=== PATIENT | female | born 1970 | race American Indian/Alaskan Native ===

== ENCOUNTER 2017-10-10 13:06 | Emergency (ER) | payer MEDICAID ==
[2017-10-10] MEDS ORDERED: CATAPRES PO ONE (13:21)
[2017-10-10] MEDS ORDERED: TORADOL IV ONE (13:21)
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
[2017-10-10 16:24] VITALS: BP 170/80
== END 2017-10-10 17:00 | disposition home or self-care (01) ==
LOC: ED 13:06
DX: S06.0X1A Concussion with loss of consciousness of 30 minutes or less, initial encounter (principal); S20.229A Contusion of unspecified back wall of thorax, initial encounter; M54.2 Cervicalgia; M54.89 Other dorsalgia; I10 Essential (primary) hypertension; E11.9 Type 2 diabetes mellitus without complications; Z88.8 Allergy status to other drugs, medicaments and biological substances; Y08.89XA Assault by other specified means, initial encounter; Y93.89 Activity, other specified; Y92.89 Other specified places as the place of occurrence of the external cause; Y99.8 Other external cause status
CPT/HCPCS: 70450; 72070; 72100; 72125; 82962; 96374; J1885